=== PATIENT | male | born 1975 | race Caucasian/White ===

== ENCOUNTER 2019-10-13 06:36 | Observation (INO) | payer SELFPAY ==
[2019-10-13 07:46] LABS: BLOOD UREA NITROGEN,BUN 20 mg/dL (7.0-18.0); CARBON DIOXIDE,CO2 25.4 mmol/L (21.0-32.0); CHLORIDE,CL 100 mmol/L (98-107); GLUCOSE RANDOM 245 mg/dL (74-106); LIPASE 211 U/L (73-393); POTASSIUM,K 3.5 mmol/L (3.5-5.1); SODIUM,NA 137 mmol/L (136-148)
[2019-10-13] MEDS: Aspirin 81 MG Tab.Chew PO SCH (07:48)
--- NOTE | 2019-10-13 08:11 | CR ---
INDICATION: Shortness of breath COMPARISON: none TECHNIQUE: Two view chest. FINDINGS: The lungs are clear. There is no evidence of pneumothorax. The heart, mediastinum and pulmonary vessels are of normal size. There is no evidence of pleural fluid. IMPRESSION: Negative chest. Dictated by Ambrocio Edmondson MD @ Oct 13 2019 8:10AM Signed by Dr. Ambrocio Edmondson @ Oct 13 2019 8:10AM
[2019-10-13] MEDS ORDERED: Nitroglycerin 0.4 MG Tab.SL SL PRN (09:04)
--- NOTE | 2019-10-13 09:04 | EDM.PDOC ---
ED HPI GENERAL MEDICAL PROBLEM - General Chief Complaint: Chest Pain Stated Complaint: CHEST PAIN Time Seen by Provider: 10/13/19 07:06 - History of Present Illness INITIAL COMMENTS - FREE TEXT/NARRATIVE: HPI 44-year-old obese male presents for evaluation of poorly characterized left- sided substernal chest pain, radiates to his back, is provoked by movement of his left arm as well as physical exercise (such as walking), pain is been gradually increasing since 10/06. No identifiable relieving factors. No change with acetaminophen. No fevers, chills, cough. No recent trauma. Triage note: c/o mid upper chest pains since 10/06, worse with arm movement/ muscle pains. denies sob or cardiac hx. M/S/F/SocHx notable for: please see HPI; remainder reviewed with patient and in chart. ROS: Negative constitutional, eye, cardiovascular, pulmonary, GI, , MSK, skin , neurologic, psychiatric, endocrine unless noted in the HPI. Exam HR 96, RR 18, BP 165/109, T 36.8C, SaO2 90% on room air. Gen: Pleasant, non-toxic appearing, resting comfortably. HEENT: NC, AT, PEERL, EOMI. Resp: Clear to auscultation bilaterally, normal work of breathing. Card: RRR with no M/R/G, no crackles in lung bases, no pedal edema, no JVD appreciated. GI: NT/ND Vascular: Both ankles, calves, and thighs of equal size, no calf tenderness to palpation bilaterally. MSK: No chest wall TTP. No visible deformities, strength and tone WNL. Skin: Normal color with no visible lesions. Neuro: AO x 3, no facial asymmetry, vision and hearing WNL. Psych: Mood and affect appropriate. Labs / Imaging (pertinent): WBC 8.42, Hb 17.7, Na 137, K 3.5, AST 41, ALT 99, ALP 124, lipase 211, glucose 245. Troponin <0.050 d-dimer 0.48 EKG: SR at 90 bpm, no KS segment depressions, equivocal nonspecific anterior lead elevations, no further ST segment depressions or elevations. CXR: No acute cardiopulmonary disease process. MDM Previous chart, nursing note, and vitals reviewed. A: 44-year-old obese male presents for evaluation of poorly characterized left- sided substernal chest pain, radiates to his back, is provoked by movement of his left arm as well as physical exercise (such as walking), pain is been gradually increasing since 10/06. DDx and Evaluation: * ACS - doubt ACS given a non-ischemic EKG and a negative troponin greater than six hours from maximal symptom onset. * Unstable angina - moderate concern for unstable angina, HEART score 5 (Hx - 1 , EKG - 1, age - 1, risk factors - 2, troponin - 0; 30 day MACE: 12-16.6%). * Pericarditis - consider pericarditis unlikely given the lack of KS segment depressions as well as the absence of diffuse ST-segment elevations, lack of reduction of pain when supine, and lack of a friction rub. * Myocarditis - unlikely given the negative troponin and an EKG without characteristic KS-segment or ST-segment changes. * Dissection - dissection is unlikely given symptoms, negative d-dimer, and a lack of mediastinal widening. * PE - low clinical suspicion, Wells' (Signs & Sx of DVT - 0, PE is #1 or equally likelihood - 0, HR > 100 - 0, immobilization of >=3 days or surgery in last 28 days - 0, prior DVT or PE - 0, hemoptysis - 0, malignancy w/ tx in last 6 mo or palliative - 0) 0; as such the patients negative d-dimer is appropriate for PE rule out/risk stratification. * Mediastinal Air - no evidence by CXR or auscultation. * Pneumothorax - no evidence by CXR or physical exam. * MSK - doubt given lack of reproducibility on exam. * Endocarditis - no identifiable risk factors, patient afebrile, no new murmurs appreciated on exam; doubt. * GI (Esophageal rupture, GERD) - esophageal rupture effectively excluded given the lack of mediastinal widening, non-toxic appearance, and lack of identifiable risk factors. ED Course: Patient given ASA. Vital signs remained stable and within clinically acceptable limits. Disposition: Admitted for further evaluation as appropriate. Impression: chest pain, DM II. Upper Chest Pain Score (Numeric/FACES): 6 - Related Data Allergies Allergy/AdvReac Type Severity Reaction Status Date / Time No Known Allergies Allergy Verified 10/13/19 06:52 Home Meds: Home Meds . [No Known Home Meds] 10/13/19 [History] Past Medical History Endocrine/Metabolic History: Reports: Diabetes, Type I Social & Family History - Family History Family Medical History: Noncontributory - Tobacco Use Smoking Status *Q: Never Smoker Second Hand Smoke Exposure: No - Caffeine Use Caffeine Use: Reports: Coffee - Alcohol Use Days Per Week of Alcohol Use: 5 Number of Drinks Per Day: 4 Total Drinks Per Week: 20 - Recreational Drug Use Recreational Drug Use: No ED ROS GENERAL - Review of Systems Review Of Systems: See Below ED EXAM, GENERAL - Physical Exam Exam: See Below Course - Vital Signs Last Recorded V/S: Last Vital Signs Temp 36.8 C 10/13/19 06:40 Pulse 96 10/13/19 06:40 Resp 18 10/13/19 06:40 BP 165/109 H 10/13/19 06:40 Pulse Ox 98 10/13/19 06:40 - Orders/Labs/Meds Orders: Active Orders 24 hr Category Date Time Status EKG 12 Lead [EKG Documentation Completion] [RC] STAT Care 10/13/19 07:08 Inactive Aspirin Med 10/13/19 09:00 Active 324 mg PO DAILY Medication Orders Aspirin (Aspirin) 324 mg PO DAILY JACQUIE Last Admin: 10/13/19 07:48 Dose: 324 mg Labs: Laboratory Tests 10/13/19 10/13/19 10/13/19 Range/Units 06:45 06:45 06:45 WBC 8.42 (4.0-11.0) K/uL RBC 6.47 H (4.50-5.90) M/uL Hgb 17.7 H (13.0-17.0) g/dL Hct 51.0 H (38.0-50.0) % MCV 78.8 L (80.0-98.0) fL MCH 27.4 (27.0-32.0) pg MCHC 34.7 (31.0-37.0) g/dL RDW Std Deviation 36.8 (28.0-62.0) fl RDW Coeff of Kam 13 (11.0-15.0) % Plt Count 166 (150-400) K/uL MPV 12.40 H (7.40-12.00) fL Neut % (Auto) 63.5 (48.0-80.0) % Lymph % (Auto) 28.4 (16.0-40.0) % [place] % (Auto) 6.7 (0.0-15.0) % Eos % (Auto) 1.2 (0.0-7.0) % Baso % (Auto) 0.2 (0.0-1.5) % Neut # (Auto) 5.4 (1.4-5.7) K/uL Lymph # (Auto) 2.4 (0.6-2.4) K/uL [place] # (Auto) 0.6 (0.0-0.8) K/uL Eos # (Auto) 0.1 (0.0-0.7) K/uL Baso # (Auto) 0.0 (0.0-0.1) K/uL Nucleated RBC % 0.0 /100WBC Nucleated RBCs # 0 K/uL D-Dimer, Quantitative 0.48 (0.0-0.50) mg/L FEU Sodium 137 (136-148) mmol/L Potassium 3.5 (3.5-5.1) mmol/L Chloride 100 (98-107) mmol/L Carbon Dioxide 25.4 (21.0-32.0) mmol/L BUN 20 H (7.0-18.0) mg/dL Creatinine 1.0 (0.8-1.3) mg/dL Est Cr Clr Drug Dosing 84.18 mL/min Estimated GFR (MDRD) > 60.0 ml/min Glucose 245 H (74-106) mg/dL Calcium 8.9 (8.5-10.1) mg/dL Total Bilirubin 0.7 (0.2-1.0) mg/dL AST 41 H (15-37) IU/L ALT 99 H (14-63) IU/L Alkaline Phosphatase 124 H (46-116) U/L Troponin I < 0.050 (0.000-0.056) ng/mL Total Protein 8.6 H (6.4-8.2) g/dL Albumin 3.9 (3.4-5.0) g/dL Globulin 4.7 H (2.6-4.0) g/dL Albumin/Globulin Ratio 0.8 L (0.9-1.6) Lipase 211 (73-393) U/L Meds: Medications Generic Name Dose Route Start Last Admin Trade Name Freq PRN Reason Stop Dose Admin Aspirin 324 mg 10/13/19 09:00 10/13/19 07:48 Aspirin PO 324 mg DAILY JACQUIE Administration Departure - Departure Time of Disposition: 09:04 Disposition: Admitted As Inpatient 65 Clinical Impression: Chest pain, Diabetes - Discharge Information Referrals: PCP,None [Primary Care Provider] - Sepsis Event Note - Evaluation Sepsis Screening Result: No Definite Risk - Focused Exam Vital Signs: Vital Signs Temp Pulse Resp BP Pulse Ox 10/13/19 06:40 36.8 C 96 18 165/109 H 98 Date Exam was Performed: 10/13/19 Time Exam was Performed: 09:02 - My Orders Last 24 Hours: My Active Orders 10/13/19 07:08 EKG 12 Lead [EKG Documentation Completion] [RC] STAT 10/13/19 09:00 Aspirin 324 mg PO DAILY - Assessment/Plan Last 24 Hours: My Active Orders 10/13/19 07:08 EKG 12 Lead [EKG Documentation Completion] [RC] STAT 10/13/19 09:00 Aspirin 324 mg PO DAILY
[2019-10-13] MEDS ORDERED: Ondansetron 4 MG/2 ML SDV IVPUSH PRN (11:27)
[2019-10-13] MEDS ORDERED: Sodium Chloride 0.9% 2.5 ML Syringe FLUSH PRN (11:27)
[2019-10-13] MEDS ORDERED: Acetaminophen 325 MG Tab PO PRN (11:27)
[2019-10-13] MEDS ORDERED: Pantoprazole 40 MG in Sodium Chloride 0.9% 10 ML IV ONE (11:44)
[2019-10-13] MEDS ORDERED: Alum Hydrox/Mag Hydrox/Simeth 15 ML, Lidocaine 2% 5 ML PO ONE ×2 (11:44)
--- NOTE | 2019-10-13 11:47 | PCM.HP.2 ---
H&P History of Present Illness - General Date of Service: 10/13/19 Admit Problem/Dx: Admission Diagnosis/Problem Admission Diagnosis/Problem Chest pain Source of Information: Patient History Limitations: Reports: No Limitations - History of Present Illness Initial Comments - Free Text/Narative: This 44 year old male with pmh of non compliance with DM Type 2, daily alcohol use and obesity presented to the ED today with complaints of L sided chest pain , which started as intermittent and has become more constant. He reports the pain first started on 10/06. He reports he was drinking beer and had a fall after tripping over his small dog. he hit his eye and face leaving a bruise. He denies hitting his shoulder or chest, that he can remember. He has tried taking Naproxen and Tylenol for pain which didn't help at all. Does report needing to take TUMS for heart burn. Pain is located upper L chest, with some radiation to the back. he reported any movement of his L arm hurt the chest as well, but after Nitro in ED, the pain improved. He denies shortness of breath, but reports pain does worsen with deep breath at times. He denies N/V or diaphoresis. His girlfriend urged him to come in because the pain was getting worse. He reports no diarrhea or black or bloody stools, reports stools are brown but more sticky. He denies abdominal pain or SOB. No urinary concerns. Reports he has not been taking Diabetic medications, but takes a supplement instead. He denies tobacco use, no recreational drug use, but does drink 8 beers nightly. Denies withdrawal symptoms, reports he wakes up drinks coffee and works all day with no concerns for alcohol, drinks the beer in the evenings. Denies family history of heart disease or heart attacks. In the ED, hgb 17.7 and Hct 51.0 BUN 20, Cr 1.0, Glucose 245, AST 41, ALT 99, Alk phos 124, Lipase 211, CXR negative EKG, SR with no ST or T wave inversions. BP 130/80s in ED. He was given 1 nitro and ASA. He will be admitted for chest pain rule out ACS. Upper Chest Pain Score (Numeric/FACES): 6 - Related Data Allergies/Adverse Reactions: Allergies Allergy/AdvReac Type Severity Reaction Status Date / Time No Known Allergies Allergy Verified 10/13/19 06:52 Home Medications: Home Meds . [No Known Home Meds] 10/13/19 [History] Past Medical History HEENT History: Reports: Hard of Hearing, Other (See Below) Other HEENT History: he says his smell is not good at times also. sometimes he sees better than other times. Cardiovascular History: Reports: None. Denies: Afib, Blood Clots/VTE/DVT, CAD, Hypertension Respiratory History: Reports: None. Denies: Asthma, COPD Gastrointestinal History: Reports: Other (See Below) Other Gastrointestinal History: takes Tums for acid Neurological History: Reports: Other (See Below) Other Neuro History: states has a nerve problem with right leg. Psychiatric History: Reports: None Endocrine/Metabolic History: Reports: Diabetes, Type II - Past Surgical History GI Surgical History: Reports: None Social & Family History - Family History Family Medical History: Noncontributory - Tobacco Use Smoking Status *Q: Never Smoker Second Hand Smoke Exposure: Yes - Caffeine Use Caffeine Use: Reports: Coffee, Soda - Alcohol Use Days Per Week of Alcohol Use: 7 Number of Drinks Per Day: 6 Total Drinks Per Week: 42 Date of Last Drink: 10/11/19 Time of Last Drink: 22:00 Alcohol Use Frequency: Daily - Recreational Drug Use Recreational Drug Use: No - Living Situation & Occupation 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 Denies: Fever, Chills HEENT: Reports: Other (dry mouth/lips). Denies: Headaches, Sinus Congestion, Visual Changes Pulmonary: Denies: Shortness of Breath, Cough Cardiovascular: Reports: Chest Pain. Denies: Edema, Syncope, Blood Pressure Problem Gastrointestinal: Reports: Other (heartburn). Denies: Abdominal Pain, Black Stool, Bloody Stool, Diarrhea, Nausea, Vomiting Genitourinary: Reports: No Symptoms. Denies: Dysuria, Frequency, Burning Skin: Reports: No Symptoms Psychiatric: Reports: No Symptoms. Denies: Confusion Neurological: Reports: No Symptoms Hematologic/Lymphatic: Reports: No Symptoms Immunologic: Reports: No Symptoms Exam - Exam Exam: See Below - Vital Signs Vital Signs: Last Vital Signs Temp 98.2 F 10/13/19 06:40 Pulse 88 10/13/19 10:04 Resp 16 10/13/19 10:04 BP 123/88 10/13/19 10:06 Pulse Ox 98 10/13/19 06:40 Weight: 84.595 kg - Exam General: Alert, Oriented, Cooperative HEENT: Conjunctiva Clear, Posterior Pharynx Clear. No: Mucosa Moist & [place] ( very dry mouth and lips) Lungs: Clear to Auscultation, Normal Respiratory Effort Cardiovascular: Regular Rate, Regular Rhythm, Normal S1, Normal S2, Other (no reproducible pain to chest from palpation.) Back Exam: Normal Inspection, Full Range of Motion Extremities: Normal Inspection, Normal Range of Motion (no shoulder pain and does not worsen chest pain), Non-Tender, No Pedal Edema Neuro Extensive - Mental Status: Alert, Oriented x3 Psychiatric: Alert, Normal Affect, Normal Mood - Patient Data Lab Results Last 24 hrs: Laboratory Results - last 24 hr 10/13/19 10/13/19 10/13/19 Range/Units 06:45 06:45 06:45 WBC 8.42 (4.0-11.0) K/uL RBC 6.47 H (4.50-5.90) M/uL Hgb 17.7 H (13.0-17.0) g/dL Hct 51.0 H (38.0-50.0) % MCV 78.8 L (80.0-98.0) fL MCH 27.4 (27.0-32.0) pg MCHC 34.7 (31.0-37.0) g/dL RDW Std Deviation 36.8 (28.0-62.0) fl RDW Coeff of Kam 13 (11.0-15.0) % Plt Count 166 (150-400) K/uL MPV 12.40 H (7.40-12.00) fL Neut % (Auto) 63.5 (48.0-80.0) % Lymph % (Auto) 28.4 (16.0-40.0) % [place] % (Auto) 6.7 (0.0-15.0) % Eos % (Auto) 1.2 (0.0-7.0) % Baso % (Auto) 0.2 (0.0-1.5) % Neut # (Auto) 5.4 (1.4-5.7) K/uL Lymph # (Auto) 2.4 (0.6-2.4) K/uL [place] # (Auto) 0.6 (0.0-0.8) K/uL Eos # (Auto) 0.1 (0.0-0.7) K/uL Baso # (Auto) 0.0 (0.0-0.1) K/uL Nucleated RBC % 0.0 /100WBC Nucleated RBCs # 0 K/uL D-Dimer, Quantitative 0.48 (0.0-0.50) mg/L FEU Sodium 137 (136-148) mmol/L Potassium 3.5 (3.5-5.1) mmol/L Chloride 100 (98-107) mmol/L Carbon Dioxide 25.4 (21.0-32.0) mmol/L BUN 20 H (7.0-18.0) mg/dL Creatinine 1.0 (0.8-1.3) mg/dL Est Cr Clr Drug Dosing 84.18 mL/min Estimated GFR (MDRD) > 60.0 ml/min Glucose 245 H (74-106) mg/dL Calcium 8.9 (8.5-10.1) mg/dL Total Bilirubin 0.7 (0.2-1.0) mg/dL AST 41 H (15-37) IU/L ALT 99 H (14-63) IU/L Alkaline Phosphatase 124 H (46-116) U/L Troponin I < 0.050 (0.000-0.056) ng/mL Total Protein 8.6 H (6.4-8.2) g/dL Albumin 3.9 (3.4-5.0) g/dL Globulin 4.7 H (2.6-4.0) g/dL Albumin/Globulin Ratio 0.8 L (0.9-1.6) Triglycerides (0-200) mg/dL Cholesterol (50-200) mg/dL LDL Cholesterol, Calc (60-180) mg/dL VLDL Cholesterol (5-55) mg/dL HDL Cholesterol (40-60) mg/dL Cholesterol/HDL Ratio (3.3-6.0) Lipase 211 (73-393) U/L 10/13/19 Range/Units 06:45 WBC (4.0-11.0) K/uL RBC (4.50-5.90) M/uL Hgb (13.0-17.0) g/dL Hct (38.0-50.0) % MCV (80.0-98.0) fL MCH (27.0-32.0) pg MCHC (31.0-37.0) g/dL RDW Std Deviation (28.0-62.0) fl RDW Coeff of Kam (11.0-15.0) % Plt Count (150-400) K/uL MPV (7.40-12.00) fL Neut % (Auto) (48.0-80.0) % Lymph % (Auto) (16.0-40.0) % Love % (Auto) (0.0-15.0) % Eos % (Auto) (0.0-7.0) % Baso % (Auto) (0.0-1.5) % Neut # (Auto) (1.4-5.7) K/uL Lymph # (Auto) (0.6-2.4) K/uL Love # (Auto) (0.0-0.8) K/uL Eos # (Auto) (0.0-0.7) K/uL Baso # (Auto) (0.0-0.1) K/uL Nucleated RBC % /100WBC Nucleated RBCs # K/uL D-Dimer, Quantitative (0.0-0.50) mg/L FEU Sodium (136-148) mmol/L Potassium (3.5-5.1) mmol/L Chloride (98-107) mmol/L Carbon Dioxide (21.0-32.0) mmol/L BUN (7.0-18.0) mg/dL Creatinine (0.8-1.3) mg/dL Est Cr Clr Drug Dosing mL/min Estimated GFR (MDRD) ml/min Glucose (74-106) mg/dL Calcium (8.5-10.1) mg/dL Total Bilirubin (0.2-1.0) mg/dL AST (15-37) IU/L ALT (14-63) IU/L Alkaline Phosphatase (46-116) U/L Troponin I (0.000-0.056) ng/mL Total Protein (6.4-8.2) g/dL Albumin (3.4-5.0) g/dL Globulin (2.6-4.0) g/dL Albumin/Globulin Ratio (0.9-1.6) Triglycerides 319 H (0-200) mg/dL Cholesterol 259 H (50-200) mg/dL LDL Cholesterol, Calc 140 (60-180) mg/dL VLDL Cholesterol 63 H (5-55) mg/dL HDL Cholesterol 55 (40-60) mg/dL Cholesterol/HDL Ratio 4.7 (3.3-6.0) Lipase (73-393) U/L Result Diagrams: 10/13/19 06:45 10/13/19 06:45 Sepsis Event Note - Evaluation Sepsis Screening Result: No Definite Risk - Focused Exam Vital Signs: Vital Signs Temp Pulse Resp BP BP Pulse Ox 10/13/19 10:06 123/88 10/13/19 10:04 88 16 134/91 H 10/13/19 09:59 136/97 H 10/13/19 06:40 98.2 F 96 18 165/109 H 98 Date Exam was Performed: 10/13/19 Time Exam was Performed: 13:49 - Problem List (1) Chest pain SNOMED Code(s): 95042611 ICD Code: R07.9 - CHEST PAIN, UNSPECIFIED Status: Acute Current Visit: Yes (2) DM type 2 (diabetes mellitus, type 2) SNOMED Code(s): 65790754 ICD Code: E11.9 - TYPE 2 DIABETES MELLITUS WITHOUT COMPLICATIONS Status: Chronic Current Visit: Yes Qualifiers: Diabetes mellitus termite control service representative insulin use: without termite control service representative use Diabetes mellitus complication status: without complication Qualified Code(s): E11.9 - Type 2 diabetes mellitus without complications (3) Obesity SNOMED Code(s): 130516764, 400550295 ICD Code: E66.9 - OBESITY, UNSPECIFIED Status: Chronic Current Visit: Yes (4) Alcohol use SNOMED Code(s): 029366 ICD Code: Z72.89 - OTHER PROBLEMS RELATED TO LIFESTYLE Status: Chronic Current Visit: Yes (5) Transaminitis SNOMED Code(s): 104930810, 718408116 ICD Code: R74.0 - NONSPEC ELEV OF LEVELS OF TRANSAMNS & LACTIC ACID DEHYDRGNSE Status: Acute Current Visit: Yes (6) Dyslipidemia SNOMED Code(s): 347542124 ICD Code: E78.5 - HYPERLIPIDEMIA, UNSPECIFIED Status: Chronic Current Visit: Yes Problem List Initiated/Reviewed/Updated: Yes Orders Last 24hrs: Active Orders 24 hr Category Date Time Status Admission Status [Patient Status] [ADT] Stat ADT 10/13/19 09:39 Active Blood Glucose Check, Bedside [RC] TIDAC Care 10/13/19 11:27 Active EKG 12 Lead [EKG Documentation Completion] [RC] STAT Care 10/13/19 07:08 Inactive Intake and Output [RC] QSHIFT Care 10/13/19 11:28 Active Oxygen Therapy [RC] PRN Care 10/13/19 11:27 Active Telemetry Monitoring [Cardiac Monitoring] [RC] . Care 10/13/19 11:27 Active DIRECTED Up to Chair [RC] ASDIRECTED Care 10/13/19 11:27 Active VTE/DVT Education [RC] PER UNIT ROUTINE Care 10/13/19 11:27 Active Vital Signs [RC] Q4H Care 10/13/19 11:27 Active Consult to Diabetic Nurse Specialist [CONS] Routine Cons 10/13/19 11:27 Active Heart Healthy Diet [DIET] Diet 10/13/19 Lunch Active Abdomen Ltd [US] Routine Exams 10/13/19 11:43 Ordered GLYCOSYLATED HEMOGLOBIN,HGBA1C [CHEM] Routine Lab 10/13/19 06:45 Received HEPATITIS PANEL (4) [REF] Routine Lab 10/13/19 11:43 Ordered TROPONIN I [CHEM] Q6H Lab 10/13/19 12:45 Ordered TROPONIN I [CHEM] Q6H Lab 10/13/19 18:45 Ordered Acetaminophen [Tylenol] Med 10/13/19 11:27 Ordered 650 mg PO Q4H PRN Aspirin Med 10/13/19 09:00 Active 324 mg PO DAILY GI Cocktail 20 ML PO x 1 Med 10/13/19 11:44 Ordered Alum Hydrox/Mag Hydrox/Simeth [Mag-Al Plus] 15 ml Lidocaine 2% [Xylocaine 2% Viscous] 5 ml PO ONETIME Insulin Aspart [NovoLOG] Med 10/13/19 11:30 Ordered See Protocol SUBCUT TIDAC Nitroglycerin [Nitrostat] Med 10/13/19 09:04 Active 0.4 mg SL Q5M PRN Ondansetron [Zofran] Med 10/13/19 11:27 Ordered 4 mg IVPUSH Q4H PRN Sodium Chloride 0.9% [Normal Saline] 1,000 ml Med 10/13/19 12:00 Ordered IV Q6HR Sodium Chloride 0.9% [Saline Flush] Med 10/13/19 11:27 Ordered 2.5 ml FLUSH ASDIRECTED PRN Saline Lock Insert [OM.PC] Routine Oth 10/13/19 11:27 Ordered Resuscitation Status Routine Resus Stat 10/13/19 11:27 Ordered Medication Orders Acetaminophen (Tylenol) 650 mg PO Q4H PRN PRN Reason: Pain Aspirin (Aspirin) 324 mg PO DAILY [facility] Last Admin: 10/13/19 07:48 Dose: 324 mg Al Hydroxide/Mg Hydroxide 15 (ml/ Lidocaine HCl 5 ml) 0 ml PO ONETIME ONE Stop: 10/13/19 11:45 Sodium Chloride (Normal Saline) 1,000 mls @ 150 mls/hr IV Q6HR JACQUIE Stop: 10/13/19 17:59 Insulin Aspart (Novolog) 0 unit SUBCUT TIDAC JACQUIE; Protocol Nitroglycerin (Nitrostat) 0.4 mg SL Q5M PRN PRN Reason: Chest Pain Last Admin: 10/13/19 09:59 Dose: 0.4 mg Ondansetron HCl (Zofran) 4 mg IVPUSH Q4H PRN PRN Reason: Nausea Sodium Chloride (Saline Flush) 2.5 ml FLUSH ASDIRECTED PRN PRN Reason: Keep Vein Open Assessment/Plan Comment:: This 44 year old male admitted with chest pain, with uncontrolled Dm TYpe 2 1. Chest pain: Atypical in nature, has been intermittent since 10/06. Initial troponin negative in ED. EKG SR. Will trial GI cocktail and Protonix. Patient noted to be burping frequently during interview. Trend troponins. A1c 10.7 uncontrolled. Cholesterol elevated at 259, Triglycerides 319 LDL 140 and HDL 63. Will start Atorvastatin 20 mg at bedtime. Continue ASA as well. Monitor BPs. Recommend outpatient follow up with stress test due to risk factors. 2. DM Type 2: Uncontrolled, Consult DM Educator, with A1c at 10, will need insulin. Will add Novolog SSI and Lantus 10 units tonight. Will give 1 L NS, Hgb 17 and appears dehydrated with dry mucus membranes. 3. Transaminitis: Drinks alcohol daily and uncontrolled DM. Hepatitis panel pending. RUQ US today. Encouraged to stop drinking alcohol. VTE prophylaxis: SCDs Dispo: 1 day - Mortality Measure Prognosis:: Good
[2019-10-13 12:00] LABS: HEMOGLOBIN A1C 10.7 % (4.5-6.2)
[2019-10-13] MEDS ORDERED: Sodium Chloride 0.9% 1,000 ML IV SCH (12:00)
[2019-10-13] MEDS: Insulin Aspart 100 Units/ML 3 ML Pen SUBCUT SCH ×2 (13:58→17:40)
[2019-10-13] MEDS ORDERED: LORazepam 1 MG Tab PO PRN (14:26)
[2019-10-13] MEDS ORDERED: Acetaminophen/HYDROcodone 325-5 MG Tab PO PRN (15:55)
[2019-10-13] MEDS ORDERED: Morphine 2 MG/ML Syringe IVPUSH ONE (15:55)
--- NOTE | 2019-10-13 20:01 | US ---
INDICATION: Elevated liver enzymes. TECHNIQUE: Ultrasound abdomen limited. Sonographic images of the right upper quadrant were obtained using thomas-scale and color Doppler images. COMPARISON: None FINDINGS: Liver: Normal in size. Diffusely echogenic consistent with fatty infiltration.. No masses. No intrahepatic biliary dilatation. Gallbladder: No stones or sludge. Normal wall thickness. No pericholecystic fluid. Common bile duct: 5 mm. Pancreas: Not well visualized secondary to bowel gas. Right kidney: Normal in size. Normal echotexture and cortex. No suspicious masses, stones, or hydronephrosis. IMPRESSION: Diffuse hepatic steatosis. Otherwise unremarkable exam. Dictated by Daniel Blank MD @ Oct 13 2019 7:56PM Signed by Dr. Daniel Blank @ Oct 13 2019 7:59PM
[2019-10-13] MEDS ORDERED: Folic Acid 1 MG Tab PO SCH (21:00)
[2019-10-13] MEDS ORDERED: atorvaSTATin 20 MG Tab PO SCH (21:00)
[2019-10-13] MEDS ORDERED: Insulin Glargine,Human Rec. Analog 100 Units/ML 3 ML Pen SUBCUT SCH (21:00)
[2019-10-13] MEDS ORDERED: Thiamine 100 MG Tab PO SCH (21:00)
[2019-10-14] MEDS: Insulin Aspart 100 Units/ML 3 ML Pen SUBCUT SCH ×2 (07:04→12:19)
[2019-10-14] MEDS ORDERED: Pantoprazole 40 MG Tab.CR PO SCH (07:30)
[2019-10-14] MEDS: Aspirin 81 MG Tab.Chew PO SCH (08:36)
--- NOTE | 2019-10-14 10:06 | PCM.DCSUM1 ---
<Saba Parker - Last Filed: 10/14/19 15:46> Discharge Summary - Hospital Course Free Text/Narrative:: Discharge summary Admission date 10/13 2019 Discharge date October 14, 2019 Admission diagnoses: Chest Pain with ACS rule out Uncontrolled Diabetes Medical non-compliance Consultations: DM educator Procedures:none Hospital course: Patient is a 44-year-old male with a significant past medical history of noncompliance of type 2 diabetes medication, daily alcohol use and obesity presented with left-sided chest pain which was intermittent however became more constant throughout the past couple of days ; states the pain began on October 06 and states that he had been drinking some alcohol and he tripped over his dog , falling on his chest thereby causing some chest discomfort; patient at home had tried using naproxen and Tylenol however did not help ; patient was admitted for ACS rule out with sinus rhythm on EKG and troponin x3 negative. Chest x-ray was negative however diabetes uncontrolled. Patient endorses not taking his insulin and his home medications secondary to not having any more prescriptions. On day of discharge patient was sent home with prescription for Lantus and 800 mg 3 times daily ibuprofen. Advised to follow-up with primary care and bowling ball finisher. Consult to bowling ball finisher was placed however was not available secondary to holidays. Patient was advised not to consume any more alcohol. Discharge condition:stable Disposition:Home Follow-up:PCP- bowling ball finisher - Discharge Data Discharge Date: 10/14/19 Discharge Disposition: Home, Self-Care 01 Condition: Fair - Referral to Home Health Primary Care Physician: PCP None - Patient Summary/Data Consults: Consultations 10/13/19 11:27 Consult to Diabetic Nurse Specialist [CONS] Routine - Discharge Plan *PRESCRIPTION DRUG MONITORING PROGRAM REVIEWED*: No *COPY OF PRESCRIPTION DRUG MONITORING REPORT IN PATIENT ANTHONY: No Prescriptions/Med Rec: Ibuprofen 800 mg PO TID 3 Days #9 tablet Insulin Glarg,Human.Rec.Analog [Lantus] 10 unit SUBCUT DAILY #1 box Home Medications: Home Meds Aspirin 324 mg PO DAILY tab.chew 10/14/19 [Rx] Folic Acid 1 mg PO BEDTIME tablet 10/14/19 [Rx] Ibuprofen 800 mg PO TID 3 Days #9 tablet 10/14/19 [Rx] Insulin Aspart [NovoLOG] 0 unit SUBCUT TIDAC pen 01/01/20 [Rx] Insulin Glarg,Human.Rec.Analog [Lantus Solostar] 10 units SUBCUT BEDTIME pen [Rx] Insulin Glarg,Human.Rec.Analog [Lantus] 10 unit SUBCUT DAILY #1 box 10/14/19 [Rx ] Pantoprazole [ProTONIX] 40 mg PO ACBREAKFAST tab.cr 10/14/19 [Rx] Thiamine [Vitamin B-1] 100 mg PO BEDTIME tablet 10/14/19 [Rx] atorvaSTATin [Lipitor] 20 mg PO BEDTIME tablet 10/14/19 [Rx] Patient Handouts: Type 2 Diabetes Mellitus, Diagnosis, Adult, Insulin Treatment for Diabetes Mellitus, Ibuprofen tablets and capsules, Pharmacologic Stress Echocardiogram, [id number], Nonspecific Chest Pain, [id number], Insulin Glargine injection Referrals: Jeyson Salcedo MD [Resident] - 10/20/19 9:30 am - Discharge Summary/Plan Comment DC Time >30 min.: No - Patient Data Vitals - Most Recent: Last Vital Signs Temp 97.5 F 10/14/19 07:40 Pulse 68 10/14/19 07:40 Resp 14 10/14/19 07:40 BP 117/87 10/14/19 07:40 Pulse Ox 96 10/14/19 07:40 Weight - Most Recent: 84.595 kg I&O - Last 24 hours: Intake & Output 10/13/19 10/14/19 10/14/19 22:59 06:59 14:59 Intake Total 1085 975 Output Total 0 500 Balance 1085 475 Lab Results - Last 24 hrs: Laboratory Results - last 24 hr 10/13/19 10/13/19 10/13/19 Range/Units 06:45 06:45 12:47 POC Glucose (60-110) mg/dL Hemoglobin A1c 10.7 H (4.5-6.2) % Troponin I < 0.050 (0.000-0.056) ng/mL Triglycerides 319 H (0-200) mg/dL Cholesterol 259 H (50-200) mg/dL LDL Cholesterol, Calc 140 (60-180) mg/dL VLDL Cholesterol 63 H (5-55) mg/dL HDL Cholesterol 55 (40-60) mg/dL Cholesterol/HDL Ratio 4.7 (3.3-6.0) 10/13/19 10/13/19 10/13/19 Range/Units 13:58 16:50 18:49 POC Glucose 197 H 200 H (60-110) mg/dL Hemoglobin A1c (4.5-6.2) % Troponin I < 0.050 (0.000-0.056) ng/mL Triglycerides (0-200) mg/dL Cholesterol (50-200) mg/dL LDL Cholesterol, Calc (60-180) mg/dL VLDL Cholesterol (5-55) mg/dL HDL Cholesterol (40-60) mg/dL Cholesterol/HDL Ratio (3.3-6.0) 10/13/19 10/14/19 Range/Units 21:12 06:12 POC Glucose 270 H 175 H (60-110) mg/dL Hemoglobin A1c (4.5-6.2) % Troponin I (0.000-0.056) ng/mL Triglycerides (0-200) mg/dL Cholesterol (50-200) mg/dL LDL Cholesterol, Calc (60-180) mg/dL VLDL Cholesterol (5-55) mg/dL HDL Cholesterol (40-60) mg/dL Cholesterol/HDL Ratio (3.3-6.0) Med Orders - Current: Current Medications Acetaminophen (Tylenol) 650 mg PO Q4H PRN PRN Reason: Pain Hydrocodone Bitart/Acetaminophen ([place] 325-5 Mg) 1 tab PO Q6H PRN PRN Reason: Pain Last Admin: 10/13/19 18:32 Dose: 1 tab Aspirin (Aspirin) 324 mg PO DAILY [facility] Last Admin: 10/14/19 08:36 Dose: 324 mg Atorvastatin Calcium (Lipitor) 20 mg PO BEDTIME [facility] Last Admin: 10/13/19 20:05 Dose: 20 mg Folic Acid (Folic Acid) 1 mg PO BEDTIME [facility] Last Admin: 10/13/19 20:05 Dose: 1 mg Insulin Aspart (Novolog) 0 unit SUBCUT TIDAC [facility]; Protocol Last Admin: 10/14/19 07:04 Dose: 4 units Insulin Glargine (Lantus Solostar) 10 units SUBCUT BEDTIME [facility] Last Admin: 10/13/19 21:16 Dose: 10 units Lorazepam (Ativan) 1 mg PO Q4H PRN PRN Reason: CIWAA Nitroglycerin (Nitrostat) 0.4 mg SL Q5M PRN PRN Reason: Chest Pain Last Admin: 10/13/19 09:59 Dose: 0.4 mg Ondansetron HCl (Zofran) 4 mg IVPUSH Q4H PRN PRN Reason: Nausea Pantoprazole Sodium (Protonix) 40 mg PO ACBREAKFAST [facility] Last Admin: 10/14/19 07:01 Dose: 40 mg Sodium Chloride (Saline Flush) 2.5 ml FLUSH ASDIRECTED PRN PRN Reason: Keep Vein Open Thiamine HCl (Vitamin B-1) 100 mg PO BEDTIME [facility] Last Admin: 10/13/19 20:06 Dose: 100 mg Discontinued Medications Al Hydroxide/Mg Hydroxide 15 (ml/ Lidocaine HCl 5 ml) 0 ml PO ONETIME ONE Stop: 10/13/19 11:45 Last Admin: 10/13/19 13:57 Dose: 1 each Sodium Chloride (Normal Saline) 1,000 mls @ 150 mls/hr IV Q6HR [facility] Stop: 10/13/19 17:59 Last Admin: 10/13/19 12:49 Dose: 150 mls/hr Pantoprazole Sodium 40 mg/ (Sodium Chloride) 10 mls @ 300 mls/hr IV NOW ONE Stop: 10/13/19 11:45 Last Admin: 10/13/19 12:49 Dose: 300 mls/hr Morphine Sulfate (Morphine) 2 mg IVPUSH ONETIME ONE Stop: 10/13/19 15:56 Last Admin: 10/13/19 16:07 Dose: 2 mg <Torey Enciso J - Last Filed: 10/15/19 14:33> Discharge Summary - Referral to Home Health Primary Care Physician: PCP None - Patient Summary/Data Consults: Consultations 10/13/19 11:27 Consult to Diabetic Nurse Specialist [CONS] Routine - Patient Data Vitals - Most Recent: Last Vital Signs Temp 36.8 C 10/14/19 11:49 Pulse 76 10/14/19 11:49 Resp 18 10/14/19 11:49 BP 122/77 10/14/19 11:49 Pulse Ox 95 10/14/19 11:49 Med Orders - Current: Current Medications Discontinued Medications Acetaminophen (Tylenol) 650 mg PO Q4H PRN PRN Reason: Pain Hydrocodone Bitart/Acetaminophen ([place] 325-5 Mg) 1 tab PO Q6H PRN PRN Reason: Pain Last Admin: 10/13/19 18:32 Dose: 1 tab Aspirin (Aspirin) 324 mg PO DAILY [facility] Last Admin: 10/14/19 08:36 Dose: 324 mg Atorvastatin Calcium (Lipitor) 20 mg PO BEDTIME [facility] Last Admin: 10/13/19 20:05 Dose: 20 mg Al Hydroxide/Mg Hydroxide 15 (ml/ Lidocaine HCl 5 ml) 0 ml PO ONETIME ONE Stop: 10/13/19 11:45 Last Admin: 10/13/19 13:57 Dose: 1 each Folic Acid (Folic Acid) 1 mg PO BEDTIME [facility] Last Admin: 10/13/19 20:05 Dose: 1 mg Sodium Chloride (Normal Saline) 1,000 mls @ 150 mls/hr IV Q6HR [facility] Stop: 10/13/19 17:59 Last Admin: 10/13/19 12:49 Dose: 150 mls/hr Pantoprazole Sodium 40 mg/ (Sodium Chloride) 10 mls @ 300 mls/hr IV NOW ONE Stop: 10/13/19 11:45 Last Admin: 10/13/19 12:49 Dose: 300 mls/hr Insulin Aspart (Novolog) 0 unit SUBCUT TIDAC [facility]; Protocol Last Admin: 10/14/19 12:19 Dose: 14 units Insulin Glargine (Lantus Solostar) 10 units SUBCUT BEDTIME [facility] Last Admin: 10/13/19 21:16 Dose: 10 units Lorazepam (Ativan) 1 mg PO Q4H PRN PRN Reason: CIWAA Morphine Sulfate (Morphine) 2 mg IVPUSH ONETIME ONE Stop: 10/13/19 15:56 Last Admin: 10/13/19 16:07 Dose: 2 mg Nitroglycerin (Nitrostat) 0.4 mg SL Q5M PRN PRN Reason: Chest Pain Last Admin: 10/13/19 09:59 Dose: 0.4 mg Ondansetron HCl (Zofran) 4 mg IVPUSH Q4H PRN PRN Reason: Nausea Pantoprazole Sodium (Protonix) 40 mg PO ACBREAKFAST [facility] Last Admin: 10/14/19 07:01 Dose: 40 mg Sodium Chloride (Saline Flush) 2.5 ml FLUSH ASDIRECTED PRN PRN Reason: Keep Vein Open Thiamine HCl (Vitamin B-1) 100 mg PO BEDTIME [facility] Last Admin: 10/13/19 20:06 Dose: 100 mg - Free Text/Narrative Note: I have examined patient with resident. I have discussed findings and treatment plan with the resident. I agree with the assessment and plan as outlined in the following note.
== END 2019-10-14 14:40 | disposition home or self-care (01) ==
LOC: MW.ED 06:36 → MW.MS 09:34
PROVIDERS: ADMIT Internal Medicine; ATTEND Internal Medicine
DX: R07.89 Other chest pain (principal); E11.9 Type 2 diabetes mellitus without complications; E66.9 Obesity, unspecified; E78.5 Hyperlipidemia, unspecified; R74.0 Nonspecific elevation of levels of transaminase and lactic acid dehydrogenase [LDH]; W01.0XXA Fall on same level from slipping, tripping and stumbling without subsequent striking against object, initial encounter; Z91.14 Patient's other noncompliance with medication regimen; Z72.89 Other problems related to lifestyle
CPT/HCPCS: 36415; 71046; 76705; 80053; 80061; 80074; 82962; 83036; 83690; 84484; 85025; 85379; 93005; 96374; 96375; 99285; A9270; C9113; G0378; J1815; J2270; J7030; J7050; 99284